=== PATIENT | male | born 1945 | race African-American/Black ===

== ENCOUNTER 2017-08-02 19:15 | Emergency (ER) | payer OTHER ==
[~2017-08-02] VITALS: Ht 175.3 cm; Wt 108.4 kg
[2017-08-02 19:29] VITALS: BP 123/72
[2017-08-02 20:01] LABS: Basophils # (auto) 0 uL; Basophils % (auto) 0.3 % (0.0-2.0); Eosinophils # (auto) 0 uL; Eosinophils % (auto) 0.1 % (0.0-7.0); Hematocrit 45.5 % (41.0-53.0); Hemoglobin 15.5 g/dL (13.5-17.5); Lymphocytes # (auto) 0.9 uL; Lymphocytes % (auto) 13.2 % (10.0-50.0); Mean Corpuscular Hemoglobin 28.3 pg (28.0-32.0); Mean Corpuscular Hgb Conc. 34.1 g/dL (32.0-36.0); Mean Corpuscular Volume 82.9 fL (80.0-100.0); Monocytes # (auto) 0.5 uL; Monocytes % (auto) 7.6 % (0.0-12.0); Neutrophils # (auto) 5.3 uL; Neutrophils % (auto) 78.8 % (37.0-80.0); Nucleated Red Blood Cells % 0.3 %; Platelet Count (auto) 176 10^3/uL (140-450); Red Blood Cells 5.49 10^6/uL (4.5-5.90); Red Cell Distribution Width 13.9 % (11.8-14.3); White Blood Cell 6.7 10^3/uL (4.4-10.8)
[2017-08-02 20:12] LABS: INR 1.06 (0.9-1.15); Partial Thromboplastin Time 35.7 sec (22.64-33.71); Prothrombin Time 11.6 sec (9.37-12.3)
[2017-08-02 20:17] LABS: Alanine Aminotransferase 25 U/L (16-61); Albumin 3.3 g/dL (3.4-5.0); Anion Gap 9 (5-15); Aspartate Aminotransferase 23 U/L (15-37); BUN/Creatinine Ratio 10.5; Blood Urea Nitrogen 13 mg/dL (7-18); Calcium 8.5 mg/dL (8.5-10.1); Carbon Dioxide 24 mmol/L (21-32); Chloride 102 mmol/L (98-107); GFR African American 74 mL/min; GFR Non-African American 61 mL/min; Glucose 111 mg/dL (74-106); Potassium 3.7 mmol/L (3.5-5.1); Sodium 135 mmol/L (136-145)
[2017-08-02 20:24] LABS: Alkaline Phosphatase 74 U/L (45-117); Bilirubin, Total 0.4 mg/dL (0.2-1.0); Total Protein 7.2 g/dL (6.4-8.2)
== END 2017-08-02 20:47 | disposition left against medical advice (07) ==
LOC: ER 19:15
DX: R53.1 Weakness (principal); Z53.21 Procedure and treatment not carried out due to patient leaving prior to being seen by health care provider
CPT/HCPCS: 36415; 71046; 80053; 83880; 84484; 85025; 85610; 85730; 93005

== ENCOUNTER 2024-03-30 13:51 | Inpatient (IN) | payer OTHER ==
[~2024-03-30] VITALS: Ht 167.6 cm; Wt 85.1 kg
--- NOTE | 2024-03-30 14:21 | ED.PDOC ---
History of Present Illness HPI Comments 78 y.o male with PMH of HTN, hyperlipidemia, and thyroid, presents to the ED for a chief complaint of a cough associated with constipation x 2 weeks. Patient is unable to specify further symptoms, states "i have been feeling bad the past 2 weeks with some chest soreness that is no longer there". Patient was at the [facility] today to get his Covid-19 vaccine and staff noticed his blood pressure was low and 911 was activated. Patient does reports not taking his HTN medication for the past 2-3 days due to feeling ill. No SOB, nausea, vomiting, diarrhea, fever, or chills reported. Time Seen by MD: 14:11 Reviewed Notes: Nurses Notes, Medications, Allergies Allergies: Coded Allergies: NO KNOWN ALLERGIES (Unverified , 08/02/17) Information Source: Patient Mode of Arrival: Ambulatory Severity: Moderate Timing: Weeks (2) Duration: Since onset Past Medical History PAST MEDICAL HISTORY: High Lipids, HTN, Thyroid Surgical History (Other): 2 colonoscopies Family History Family History: Reviewed,noncontributory to illness Social History Smoker: Non-Smoker Alcohol: Denies ETOH Use Drugs: Denies Drug Use Lives In: Home Constitutional: reports: malaise; denies: chills, diaphoresis, fatigue, fever, sweats, weakness, others EENTM: denies: blurred vision, double vision, ear bleeding, ear discharge, ear drainage, ear pain, ear ringing, eye pain, eye redness, hearing loss, mouth pain, mouth swelling, nasal discharge, nose bleeding, nose congestion, nose pain, photophobia, tearing, throat pain, throat swelling, voice changes, others Respiratory: reports: cough; denies: hemoptysis, orthopnea, SOB at rest, shortness of breath, SOB with excertion, stridor, wheezing, others Cardiovascular: denies: chest pain, dizzy spells, diaphoresis, Dyspnea on exertion, edema, irregular heart beat, left arm pain, lightheadedness, palpitations, PND, syncope, others Gastrointestinal: reports: constipated; denies: abdomen distended, abdominal pa in, blood streaked bowels, diarrhea, dysphagia, difficulty swallowing, hematemesis, melena, nausea, poor appetite, poor fluid intake, rectal bleeding, rectal pain, vomiting, others Genitourinary: denies: burning, dysuria, flank pain, frequency, hematuria, incontinence, penile discharge, penile sore, pain, testicle pain, testicle swelling, urgency, others Neurological: denies: dizziness, fainting, headache, left sided numbness, left sided weakness, numbness, paresthesia, pre-existing deficit, right sided numbness, right sided weakness, seizure, speech problems, tingling, tremors, weakness, others Musculoskeletal: denies: back pain, gout, joint pain, joint swelling, muscle pain, muscle stiffness, neck pain, others Integumetry: denies: bruises, change in color, change in hair/nails, dryness, laceration, lesions, lumps, rash, wounds, others Allergic/Immunocompromised: denies: Difficulty Healing, Frequent Infections, Hives, Itching, others Hematologic/Lymphatic: denies: anemia, blood clots, easy bleeding, easy bruising, swollen glands, others Endocrine: denies: excessive hunger, excessive sweating, excessive thirst, excessive urination, flushing, intolerance to cold, intolerance to heat, unexplained weight gain, unexplained weight loss, others Psychiatric: denies: anxiety, bipolar disorder, depression, hopeless, panic disorder, schizophrenia, sleepless, suicidal, others All Other Systems: Reviewed and Negative Physical Exam General Appearance: Moderate Distress, Obese HEENT: Normal ENT Inspection, Pharynx Normal, TMs Normal Neck: Full Range of Motion, Non-Tender, Normal, Normal Inspection Respiratory: Chest Non-Tender, Lungs Clear, No Accessory Muscle Use, No Respiratory Distress, Normal Breath Sounds Cardiovascular: No Edema, No JVD, No Murmur, No Gallop, Normal Peripheral Pulses, Regular Rate/Rhythm Breast Exam: Deferred Gastrointestinal: No Organomegaly, Non Tender, No Pulsatile Mass, Normal Bowel Sounds, Soft Genitalia: Deferred Pelvic: Deferred Rectal: Deferred Extremities: No calf tenderness, Normal capillary refill, No pedal edema Musculoskeletal : Apperance: Normal 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 Was a procedure done?: No EKG EKG : Pulse Rate (adult): 115 Cardiac Rhythm: ST Differential Dx Considerations may include: URI, Pneumonia, dehydration, influenza, bronchitis, asthma X-Ray, Labs, Meds, VS Vital Signs Date Time Temp Pulse Resp B/P (MAP) Pulse Ox O2 Delivery O2 Flow Rate FiO2 03/30/24 19:30 98.3 89 19 99/54 (69) 95 98.3 03/30/24 18:02 89 29 90 Nasal Cannula* 3 32 03/30/24 16:47 78 18 96/45 (62) 97 03/30/24 16:22 97.5 83 20 97/39 (58) 97 97.5 03/30/24 15:12 103 18 96 Room Air 03/30/24 15:12 98.9 103 18 86/51 (63) 96 98.9 03/30/24 14:52 115 03/30/24 14:37 97.0 132 17 91/62 (72) 98 03/30/24 14:29 115 Lab Test 03/30/24 18:20 03/30/24 16:43 03/30/24 16:01 03/30/24 14:48 Range/Units Blood Gas Specimen Type Arterial Blood Gas Sample Site Right radial Blood Gas Patient Temperature 37.0 Arterial Blood Date Drawn [id number] Arterial Blood pH 7.479 H 7.350-7.450 Arterial Blood Partial Pressure CO2 25.8 L 35.0-48.0 mmHg Arterial Blood Partial Pressure O2 140.5 H 83.0-108.0 mmHg Arterial Blood HCO3 18.7 L 21.0-28.0 mmol/L Arterial Blood Oxygen Saturation 98.9 H 94.0-98.0 % Arterial Blood Base Excess -3.1 L -2.0-3.0 mmol/L Arterial Blood Oxyhemoglobin 98.0 94.0-98.0 % Arterial Blood Carboxyhemoglobin 0.5 0.5-1.5 % Arterial Blood Methemoglobin 0.4 0.0-1.5 % Tonny Test Yes Blood Gas Total Hemoglobin 14.30 13.5-17.5 g/dL Blood Gas Liter Flow 4.00 Blood Gas Modality Nasal cannula FiO2 % 36.0 Lactic Acid Level 2.0 2.5 *H 0.4-2.0 mmol/L Troponin I High Sensitivity 7 7 </=54 ng/L White Blood Count 9.5 4.4-10.8 10^3/uL Red Blood Count 5.06 4.5-5.90 10^6/uL Hemoglobin 14.6 13.5-17.5 g/dL Hematocrit 43.0 41.0-53.0 % Mean Corpuscular Volume 85.0 80.0-100.0 fL Mean Corpuscular Hemoglobin 28.9 28.0-32.0 pg Mean Corpuscular Hemoglobin Concent 34.0 32.0-36.0 g/dL Red Cell Distribution Width 14.0 11.8-14.3 % Platelet Count 373 140-450 10^3/uL Mean Platelet Volume 7.3 6.9-10.8 fL Neutrophils (%) (Auto) 75.7 37.0-80.0 % Lymphocytes (%) (Auto) 18.7 10.0-50.0 % Monocytes (%) (Auto) 4.5 0.0-12.0 % Eosinophils (%) (Auto) 0.7 0.0-7.0 % Basophils (%) (Auto) 0.4 0.0-2.0 % Neutrophils # (Auto) 7.2 1.6-8.6 10 ^3/uL Lymphocytes # (Auto) 1.8 0.4-5.4 10 ^3/uL Monocytes # (Auto) 0.4 0-1.3 10 ^3/uL Eosinophils # (Auto) 0.1 0-0.8 10 ^3/uL Basophils # (Auto) 0 0-0.2 10 ^3/uL Nucleated Red Blood Cells 0.1 % D-Dimer, Quantitative 1.12 H 0.0-0.49 mg/L FEU Sodium Level 138 136-145 mmol/L Potassium Level 4.4 3.5-5.1 mmol/L Chloride Level 104 98-107 mmol/L Carbon Dioxide Level 22 20-31 mmol/L Anion Gap 12 5-15 Blood Urea Nitrogen 29 H 9-23 mg/dL Creatinine 2.36 H 0.700-1.30 mg/dL Glomerular Filtration Rate Calc 27 >90 mL/min BUN/Creatinine Ratio 12.3 10.0-20.0 Serum Glucose 148 H 74-106 mg/dL Calcium Level 10.0 8.7-10.4 mg/dL Total Bilirubin 0.9 0.2-1.0 mg/dL Aspartate Amino Transferase (AST) 57 H 13-40 U/L Alanine Aminotransferase (ALT) 129 H 7-40 U/L Alkaline Phosphatase 167 H 46-116 U/L B-Type Natriuretic Peptide 22.49 0-100 pg/mL Total Protein 7.0 5.7-8.2 g/dL Albumin 4.2 3.2-4.8 g/dL Current Medications Medications (Trade) Dose Ordered Sig/Niki Route Start Time Stop Time Status Last Admin Sodium Chloride 1,000 ml @ 500 mls/hr Q2H ONCE IVB 03/30/24 14:30 03/30/24 16:29 DC 03/30/24 14:51 Sodium Chloride 500 ml @ 500 mls/hr Q1H ONCE IV 03/30/24 18:15 03/30/24 19:14 DC 03/30/24 18:23 Vancomycin HCl 200 ml @ 200 mls/hr ONCE ONCE IV 03/30/24 18:15 03/30/24 19:14 DC 03/30/24 18:50 Ceftriaxone Sodium 50 ml @ 100 mls/hr ONCE ONCE IV 03/30/24 18:15 03/30/24 18:44 DC 03/30/24 18:26 The chest x-ray is negative. The ultrasound of the lower extremities are negative at this time The patient's ABG is within normal limits The CBC is within normal limits. The chemistry panel shows a BUN of 29 a creatinine of 2.36 The liver enzymes are elevated At this time, the patient was given vancomycin and ceftriaxone for possible sepsis secondary to the lactic acid level being elevated The patient was given fluid normal saline at 500 cc bolus. The D-dimer is elevated at 1.12 At this time, the patient was being admitted at this time. We did speak with [facility] and they did authorize us for admission of this patient. The authorization #[id number] The patient remained somewhat hypotensive so we will continue to monitor the patient's condition Images Reviewed?: Images reviewed and evaluated by me Time of 1ST Reevaluation: 14:16 Reevaluation 1ST: Unchanged Patient Education/Counseling: Diagnosis, Treatment, Prognosis Family Education/Counseling: No Family Present Departure 1 Departure Time of Disposition: 19:36 Impression: Primary Impression: Generalized weakness Additional Impressions: Sepsis Qualified Codes: A41.9 - Sepsis, unspecified organism Elevated lactic acid level Disposition: ADMITTED INPATIENT Admit to: [facility] Condition: Fair Critical Care Note Critical Care Time?: No Stability Stability form required: No I personally scribed for RADHAMES SYLVESTER MD ([email or web address]) on 03/30/24 at 14:21. Electronically submitted by Briana Lira ([facility]). I personally scribed for RADHAMES SYLVESTER MD ([email or web address]) on 03/30/24 at 14:29. Electronically submitted by Briana Lira ([facility]). RADHAMES SYLVESTER MD Mar 30, 2024 14:21
[2024-03-30] MEDS: SODIUM CHLORIDE 0.9% 1,000 ML IVB ONE (14:51)
[2024-03-30 15:01] LABS: Basophils # (auto) 0 10 ^3/uL (0-0.2); Basophils % (auto) 0.4 % (0.0-2.0); Eosinophils # (auto) 0.1 10 ^3/uL (0-0.8); Eosinophils % (auto) 0.7 % (0.0-7.0); Hemoglobin 14.6 g/dL (13.5-17.5); Lymphocytes # (auto) 1.8 10 ^3/uL (0.4-5.4); Lymphocytes % (auto) 18.7 % (10.0-50.0); Mean Corpuscular Hemoglobin 28.9 pg (28.0-32.0); Monocytes # (auto) 0.4 10 ^3/uL (0-1.3); Monocytes % (auto) 4.5 % (0.0-12.0); Neutrophils # (auto) 7.2 10 ^3/uL (1.6-8.6); Neutrophils % (auto) 75.7 % (37.0-80.0); Nucleated Red Blood Cells % 0.1 %; Platelet Count (auto) 373 10^3/uL (140-450); Red Blood Cells 5.06 10^6/uL (4.5-5.90); White Blood Cell 9.5 10^3/uL (4.4-10.8)
[2024-03-30 15:16] LABS: Alanine Aminotransferase 129 U/L (7-40); Albumin 4.2 g/dL (3.2-4.8); Alkaline Phosphatase 167 U/L (46-116); Anion Gap 12 (5-15); Aspartate Aminotransferase 57 U/L (13-40); BUN/Creatinine Ratio 12.3 (10.0-20.0); Blood Urea Nitrogen 29 mg/dL (9-23); Carbon Dioxide 22 mmol/L (20-31); Chloride 104 mmol/L (98-107); Glucose 148 mg/dL (74-106); Potassium 4.4 mmol/L (3.5-5.1); Sodium 138 mmol/L (136-145)
[2024-03-30 15:17] LABS: Bilirubin, Total 0.9 mg/dL (0.2-1.0)
--- NOTE | 2024-03-30 15:21 | DVH ---
Procedure: XY CHEST PORTABLE 03/30/2024 03:00 PM Indication: low bp and cp. Comparison: None TECHNIQUE: XY CHEST PORTABLE FINDINGS: Medical devices: None. Cardiomediastinal: The heart is normal in size. Pulmonary vasculature is within normal limits. Lungs: No focal pulmonary opacity is seen. The costophrenic angles are clear. No pneumothorax. Bones/soft tissues: No acute abnormality is noted. IMPRESSION: 1. No acute cardiopulmonary disease.
[2024-03-30 15:23] LABS: Lactic Acid w/Reflex 2.5 mmol/L (0.4-2.0)
[2024-03-30 18:02] VITALS: PULSE 89; RESP 29; O2SAT 90
[2024-03-30 18:23] LABS: Base Excess -3.1 mmol/L (-2.0-3.0)
[2024-03-30] MEDS: SODIUM CHLORIDE 0.9% 500 ML IV ONE ×2 (18:23→22:13)
[2024-03-30] MEDS: cefTRIAXone 1GM/50ML D5W 50 ML IV ONE (18:26)
--- NOTE | 2024-03-30 18:48 | DVH ---
Procedure: US BiLat Lower DVT Study Date and Requested Time: 03/30/2024 06:23 PM History: sob Comparison: None Technique: Multiple high resolution jameson-scale images with and without compression obtained of the bi lateral lower extremity veins, including the common femoral vein, deep femoral vein, proximal mid and distal superficial femoral vein, and popliteal vein. Additional limited images of the greater saphen ous vein also obtained. Augmentation performed as indicated. Color and spectral doppler flow images o btained as indicated. Findings: No visible intraluminal venous thrombus. No evidence of incompressibility or abnormal color or spectr al Doppler flow visualized in the bilateral lower extremity veins including, the common femoral vein, deep femoral vein, proximal mid and distal superficial femoral vein, and popliteal vein. Greater sap henous vein grossly unremarkable. Impression: No sonographic evidence of bilateral lower extremity deep venous thrombosis.
[2024-03-30] MEDS: VANCOMYCIN 1GM/200ML PREMIX 200 ML IV ONE (18:50)
[2024-03-30 19:30] VITALS: PULSE 89; RESP 19; O2SAT 95
[2024-03-30] MEDS ORDERED: NITROGLYCERIN 0.4 MG SL TAB SL PRN (21:00)
[2024-03-30] MEDS ORDERED: MORPHINE SULFATE INJ 2 MG/ml SYRG IV PRN (21:00)
[2024-03-30] MEDS ORDERED: ONDANSETRON HCL 4 MG/2 ML VIAL IV PRN (21:00)
[2024-03-30] MEDS ORDERED: HYDROcodone-ACET 5/325MG TAB PO PRN (21:00)
[2024-03-30] MEDS ORDERED: ACETAMINOPHEN 325 MG TAB PO PRN (21:00)
[2024-03-30] MEDS ORDERED: DEXTROSE (50%) 50ML SYRG IV PRN (21:15)
[2024-03-30] MEDS ORDERED: IPRATROPIUM BROM 0.5 MG/2.5ML INH SOL NEB PRN (21:15)
[2024-03-30] MEDS ORDERED: ALBUTEROL SULF 2.5 MG/0.5ML(0.5%) NEB SOLN NEB PRN (21:15)
[2024-03-30] MEDS: ALBUTEROL SULF 2.5 MG/0.5ML(0.5%) NEB SOLN NEB ONE (21:38)
[2024-03-30] MEDS: IPRATROPIUM BROM 0.5 MG/2.5ML INH SOL ONE (21:39)
[2024-03-30] MEDS: ALBUTEROL SULF 2.5 MG/0.5ML(0.5%) NEB SOLN ONE (21:39)
[2024-03-30] MEDS: IPRATROPIUM BROM 0.5 MG/2.5ML INH SOL NEB ONE (21:39)
[2024-03-30 21:48] VITALS: BP 96/45; PULSE 76; RESP 20; O2SAT 95
[2024-03-30] MEDS: InsuLIN REG 1unit/0.01ml Soln (100units/ml) SC SCH (22:00)
--- NOTE | 2024-03-30 22:04 | DVHHPRES ---
History of Present Illness Resident Creating Document: NEIDA PINZON RESIDENT History of Present Illness This is a 78 years old male with past medical history of hypertension, hyperlipidemia, hypothyroidism presented to the ED with chief complaint of cold and cough and with constipation for last 2 weeks prior to this admission. The patient states that he has generalized weakness, loss of appetite, intermittent chest pain for the same duration. Today the patient was in [place] [facility] to get the flu and COVID -19 vaccine and there staff noticed that the blood pressure was low 86/51 and then and called the EMS, who brought the patient to the ED of [facility] for further management of hypotension. The patient denies chest pain, shortness of breath, dizziness, diaphoresis, abdominal pain, nausea, vomiting or any change in or any blood in urine or dysuria. PCP: Dr. Luo in [place] Past Medical History Hypertension, hyperlipidemia, hypothyroidism Past Surgical History: None Family History: None Smoke: No ALCOHOL: none Drugs: None Lives: Alone Review of Systems Constitutional: Yes: Chills, Weakness; No: Fever, Sweats, Malaise, Other Eyes: No: Pain, Vision change, Conjunctivae inflammation, Eyelid inflammation, Other, Redness ENT: No: Ear pain, Ear discharge, Nose pain, Nose discharge, Nose congestion, Mouth pain, Mouth swelling, Throat pain, Throat swelling, Other Respiratory: Cough, Shortness of breath; No: Dry, SOB with excertion, Wheezing, Hemoptysis, Pleuritic Pain, Sputum, Wheezing, Other Cardiovascular: Chest Pain; No: Palpitations, Orthopnea, Paroxysmal Noc. Dyspnea, Edema, Lt Headedness, Other Gastrointestinal: Constipation; No: Nausea, Vomiting, Abdominal Pain, Diarrhea, Melena, Hematochezia, Other Genitourinary: No Dysuria, No Frequency, No Incontinence, No Hematuria, No Retention, No Other Musculoskeletal: No: other, neck pain, shoulder pain, arm pain, back pain, hand pain, leg pain, foot pain Skin: No: Rash, Lesions, Jaundice, Bruising, Other Neurological: No: Weakness, Numbness, Incoordination, Change in speech, C onfusion, Seizures, Other Allergies: Coded Allergies: NO KNOWN ALLERGIES (Unverified , 08/02/17) Medications Current Medications Medications Dose Ordered Sig/Niki Route Start Time Stop Time Status Last Admin Dose Admin Sodium Chloride 10 ml Q8HR IV 03/30/24 22:00 Acetaminophen 325 mg Q4HP PRN PO 03/30/24 21:00 Acetaminophen/ Hydrocodone Bitart 1 tab Q4HP PRN PO 03/30/24 21:00 Ondansetron HCl 4 mg Q4HP PRN IV 03/30/24 21:00 Nitroglycerin 0.4 mg Q5MINP PRN SL 03/30/24 21:00 Morphine Sulfate 2 mg Q30M PRN IV 03/30/24 21:00 Albuterol 2.5 mg Q4HPRN PRN NEB 03/30/24 21:15 Ipratropium [place] 0.5 mg Q4HPRN PRN NEB 03/30/24 21:15 Diagnostic Test (Pha) 1 strip ACHS 03/30/24 22:00 Insulin Human Regular ACHS SC 03/30/24 22:00 Dextrose 50 ml UD PRN IV 03/30/24 21:15 Exam Vital Signs Vital Signs Date Time Temp Pulse Resp B/P (MAP) Pulse Ox O2 Delivery O2 Flow Rate FiO2 03/30/24 21:49 98.3 89 19 99/54 (69) 95 98.3 03/30/24 21:48 4.0 36 03/30/24 21:39 Nasal Cannula* Exam Physical examination: General Appearance: Alert, Oriented X3, Cooperative, No acute distress HEENT: Atraumatic, PERRLA, EOMI, Mucous membrane moist/pink Respiratory: Mild wheezing bilaterally. Cardiovascular: Regular rate, Normal S1, Normal S2, No murmurs, no chest wall tenderness Abdominal: Normal bowel sounds, Soft, No tenderness, No hepatospenomegaly, No masses Extremities: No clubbing, No cyanosis, No edema, Normal pulses, No tendernes s/swelling Skin: No rashes, No breakdown, No significant lesion Neuro: Normal gait, Normal speech, Strength at 5/5 X4 ext, Normal tone, Sensation intact. Psych/Mental Status: Mental status NL, Mood NL Labs/Xrays Labs Test 03/30/24 21:30 03/30/24 18:20 03/30/24 16:43 03/30/24 16:01 Range/Units Blood Gas Specimen Type Arterial Blood Gas Sample Site Right radial Blood Gas Patient Temperature 37.0 Arterial Blood Date Drawn [id number] Arterial Blood pH 7.479 H 7.350-7.450 Arterial Blood Partial Pressure CO2 25.8 L 35.0-48.0 mmHg Arterial Blood Partial Pressure O2 140.5 H 83.0-108.0 mmHg Arterial Blood HCO3 18.7 L 21.0-28.0 mmol/L Arterial Blood Oxygen Saturation 98.9 H 94.0-98.0 % Arterial Blood Base Excess -3.1 L -2.0-3.0 mmol/L Arterial Blood Oxyhemoglobin 98.0 94.0-98.0 % Arterial Blood Carboxyhemoglobin 0.5 0.5-1.5 % Arterial Blood Methemoglobin 0.4 0.0-1.5 % Tonny Test Yes Blood Gas Total Hemoglobin 14.30 13.5-17.5 g/dL Blood Gas Liter Flow 4.00 Blood Gas Modality Nasal cannula FiO2 % 36.0 Lactic Acid Level 2.0 0.4-2.0 mmol/L Troponin I High Sensitivity 7 </=54 ng/L Thyroid Stimulating Hormone (TSH) 1.30 0.55-4.78 uIU/mL Test 03/30/24 14:48 Range/Units White Blood Count 9.5 4.4-10.8 10^3/uL Red Blood Count 5.06 4.5-5.90 10^6/uL Hemoglobin 14.6 13.5-17.5 g/dL Hematocrit 43.0 41.0-53.0 % Mean Corpuscular Volume 85.0 80.0-100.0 fL Mean Corpuscular Hemoglobin 28.9 28.0-32.0 pg Mean Corpuscular Hemoglobin Concent 34.0 32.0-36.0 g/dL Red Cell Distribution Width 14.0 11.8-14.3 % Platelet Count 373 140-450 10^3/uL Mean Platelet Volume 7.3 6.9-10.8 fL Neutrophils (%) (Auto) 75.7 37.0-80.0 % Lymphocytes (%) (Auto) 18.7 10.0-50.0 % Monocytes (%) (Auto) 4.5 0.0-12.0 % Eosinophils (%) (Auto) 0.7 0.0-7.0 % Basophils (%) (Auto) 0.4 0.0-2.0 % Neutrophils # (Auto) 7.2 1.6-8.6 10 ^3/uL Lymphocytes # (Auto) 1.8 0.4-5.4 10 ^3/uL Monocytes # (Auto) 0.4 0-1.3 10 ^3/uL Eosinophils # (Auto) 0.1 0-0.8 10 ^3/uL Basophils # (Auto) 0 0-0.2 10 ^3/uL Nucleated Red Blood Cells 0.1 % D-Dimer, Quantitative 1.12 H 0.0-0.49 mg/L FEU Sodium Level 138 136-145 mmol/L Potassium Level 4.4 3.5-5.1 mmol/L Chloride Level 104 98-107 mmol/L Carbon Dioxide Level 22 20-31 mmol/L Anion Gap 12 5-15 Blood Urea Nitrogen 29 H 9-23 mg/dL Creatinine 2.36 H 0.700-1.30 mg/dL Glomerular Filtration Rate Calc 27 >90 mL/min BUN/Creatinine Ratio 12.3 10.0-20.0 Serum Glucose 148 H 74-106 mg/dL Calcium Level 10.0 8.7-10.4 mg/dL Total Bilirubin 0.9 0.2-1.0 mg/dL Aspartate Amino Transferase (AST) 57 H 13-40 U/L Alanine Aminotransferase (ALT) 129 H 7-40 U/L Alkaline Phosphatase 167 H 46-116 U/L B-Type Natriuretic Peptide 22.49 0-100 pg/mL Total Protein 7.0 5.7-8.2 g/dL Albumin 4.2 3.2-4.8 g/dL Assessment/Plan Assessment/Plan Assessment and plan: # Sepsis due to unspecified cause - Lactic acid trends are 2.5>2.0 - Patient was presented with hypotension, tachycardia, elevated creatinine and elevated liver enzyme - Patient was given IV bolus NS at 30 mL/kg for 4 hours - Ordered blood culture - Cefepime 1 g daily and IV doxycycline 100 mg b.i.d. # Acute respiratory failure possibly secondary to acute exacerbation of COPD - In the ER patient was on 4 L oxygen with saturation 94% and now patient is on room air - DuoNeb treatment with albuterol and ipratropium stat given # CKD stage 3 - Renal U/S revealed bilateral thin and echogenic kidney resembles medical renal disease - Strict I&O - Avoid nephrotoxic medication - Consulted nephrology # Type 2 diabetes mellitus ,HbA1c 6.4 - Mild sliding scale of insulin # Transaminitis without hyperbilirubinemia - Monitor BMP # Slow transit constipation - Colace 100 mg p.o. b.i.d. - Lactulose 15 mL p.o. once # DVT prophylaxis - Heparin 5000 units b.i.d. Goal of care discussed with the patient for more than 20 minutes full code Plan of treatment discussed with Dr. Hernandez Plan discussed with: Patient, Other My Orders Orders - NEIDA PINZON RESIDENT Procedure Category Date Status Time Admit ADMIT 03/30/24 Transmitted 20:46 Code Status CODE 03/30/24 Transmitted 20:46 Renal DIET 03/31/24 Transmitted Standard(2gna,3gk,Lopho) Breakfast Sodium Chloride Lock PHA 03/30/24 In Process (Saline Lock Ns) 22:00 Oxygen Per Hour RT 03/30/24 Transmitted 20:46 Acetaminophen Tablet PHA 03/30/24 In Process (Tylenol Tablet) 21:00 Hydrocodone-Acet PHA 03/30/24 In Process 5/325mg Tab ([place] 21:00 Ondansetron Hcl PHA 03/30/24 In Process (Zofran) 21:00 Complete Blood Count LAB 03/31/24 Verified 04:00 Comprehensive LAB 03/31/24 Verified Metabolic Panel 04:00 Echo 2d Mode Cardiac US 03/30/24 Logged DOP 20:46 Nitroglycerin PHA 03/30/24 In Process Sublingual (Ntrostat 21:00 Morphine Sulfate PHA 03/30/24 In Process Injection 21:00 Oxygen By Nasal RT 03/30/24 Transmitted Cannula 20:46 Stat Ekg For Chest RAJENDRA 03/30/24 In Process Pain 20:46 Notify Of Changes RAJENDRA 03/30/24 In Process From Base 20:46 Preparole Counseling Aide For RAJENDRA 03/30/24 In Process 24 Hours 20:46 Emergency Dysrhythmia RAJENDRA 03/30/24 In Process Protocol 20:46 Rhythm Strips Once RAJENDRA 03/30/24 In Process Every Shift 20:46 Covid19 Antigen Vickie LAB 03/30/24 In Process Rapid Influenza A&B LAB 03/30/24 In Process 21:04 Hemoglobin A1c LAB 03/30/24 In Process 21:04 Urinalysis LAB 03/30/24 Uncollected 21:04 Albuterol Medneb PHA 03/30/24 In Process (Ventolin Medneb) 21:15 Ipratropium Medneb PHA 03/30/24 In Process (Atrovent Medneb) 21:15 Vitamin B12 LAB 03/30/24 In Process 21:04 Vitamin D, 25-Hydroxy LAB 03/30/24 In Process 21:04 Comprehensive LAB 03/30/24 In Process Hepatitis Panel 21:07 Glucose Blood PHA 03/30/24 In Process (Accu-Chek Comfort 22:00 Insulin R (Human) PHA 03/30/24 In Process (Insulin R) 22:00 Dextrose 50% Syringe PHA 03/30/24 In Process 21:15 Sodium Chloride 0.9% PHA 03/30/24 In Process 22:00 Kidney US 03/30/24 Logged 21:54 NEIDA PINZON RESIDENT Mar 30, 2024 22:04
[2024-03-30] MEDS: SODIUM CHLOR 0.9% PF (SALINE LOCK) 10ML VIAL/SYR IV SCH (22:07)
[2024-03-30] MEDS: ACCU-CHEK COMFORT CURVE STRIP VI SCH (22:10)
[2024-03-30 22:46] LABS: Rapid Influenza A Negative (Negative); Rapid Influenza B Negative (Negative)
[2024-03-30 22:47] LABS: COVID19 ANTIGEN SOFIA FIA NEGATIVE (NEGATIVE)
--- NOTE | 2024-03-30 23:19 | DVH ---
US KIDNEY HISTORY: Possible CKD COMPARISON: None TECHNIQUE: Transverse and longitudinal grayscale and color Doppler images were obtained of the kidney s and bladder. FINDINGS: Right kidney: Size: 8.5 cm Cortical thickness: Thin Echogenicity: Increased Stones: None Masses: None Hydronephrosis: None Ureters: Not well visualized. Other: None Left kidney: Size: 10.2 cm Cortical thickness: Thin Echogenicity: Increased Stones: None Masses: None Hydronephrosis: None Ureters: Not well visualized. Other: None Bladder: Normal Other: None. IMPRESSION: Thin and echogenic kidneys can be seen with medical renal disease.
[2024-03-31] VITALS (10 sets, daily range): BP systolic 100–137; BP diastolic 52–82; PULSE 61–89; RESP 17–20; TEMP 97.4–97.8; O2SAT 95–97
[2024-03-31] MEDS ORDERED: LISI20TA60 PO (01:23)
[2024-03-31] MEDS ORDERED: SIMV20TA20 PO (01:23)
[2024-03-31] MEDS ORDERED: LEVO75TA6 PO (01:23)
[2024-03-31] MEDS ORDERED: IBUP-1456 PO (01:23)
[2024-03-31] MEDS ORDERED: TAMS0.4C39 PO (01:23)
[2024-03-31] MEDS ORDERED: FINA5TAB4 PO (01:23)
[2024-03-31] MEDS: LACTULOSE 20Gm/30ML SOLN PO ONE (02:40)
[2024-03-31] MEDS: DOXYCYCLINE 100MG/250ML 250 ML IV ONE (02:41)
[2024-03-31 06:52] LABS: Basophils # (auto) 0 10 ^3/uL (0-0.2); Basophils % (auto) 0.6 % (0.0-2.0); Eosinophils # (auto) 0.1 10 ^3/uL (0-0.8); Eosinophils % (auto) 1.3 % (0.0-7.0); Hematocrit 35.7 % (41.0-53.0); Lymphocytes % (auto) 25.1 % (10.0-50.0); Mean Corpuscular Hemoglobin 28.6 pg (28.0-32.0); Mean Corpuscular Hgb Conc. 33.7 g/dL (32.0-36.0); Mean Corpuscular Volume 84.7 fL (80.0-100.0); Monocytes # (auto) 0.6 10 ^3/uL (0-1.3); Monocytes % (auto) 7.7 % (0.0-12.0); Neutrophils # (auto) 5.3 10 ^3/uL (1.6-8.6); Neutrophils % (auto) 65.3 % (37.0-80.0); Platelet Count (auto) 281 10^3/uL (140-450); Red Blood Cells 4.22 10^6/uL (4.5-5.90); Red Cell Distribution Width 14.1 % (11.8-14.3); White Blood Cell 8.1 10^3/uL (4.4-10.8)
[2024-03-31 07:04] LABS: Alanine Aminotransferase 79 U/L (7-40); Alkaline Phosphatase 115 U/L (46-116); Anion Gap 7 (5-15); BUN/Creatinine Ratio 10.4 (10.0-20.0); Blood Urea Nitrogen 21 mg/dL (9-23); Calcium 9.3 mg/dL (8.7-10.4); Carbon Dioxide 25 mmol/L (20-31); Chloride 109 mmol/L (98-107); Glucose 112 mg/dL (74-106); Potassium 4.1 mmol/L (3.5-5.1); Sodium 141 mmol/L (136-145)
[2024-03-31 07:05] LABS: Albumin 3.5 g/dL (3.2-4.8); Aspartate Aminotransferase 31 U/L (13-40); Bilirubin, Total 0.7 mg/dL (0.2-1.0); Total Protein 5.9 g/dL (5.7-8.2)
--- NOTE | 2024-03-31 11:02 | DVHINCON2 ---
Date of service: Mar 31, [address] Leyva Reason for Consultation Acute kidney injury History of Present Illness Patient is a 78-year-old male with past medical history significant for diabetes mellitus type 2, High Lipids, HTN, and hypothyroidism is admitted for cough and constipation. On admission patient found to have elevated creatinine nephrology is consulted for acute kidney injury Past Medical History PAST MEDICAL HISTORY: Diabetes mellitus type 2, High Lipids, HTN, Thyroid Past Surgical History Surgical History (Other): 2 colonoscopies Allergies: Coded Allergies: NO KNOWN ALLERGIES (Unverified , 08/02/17) Home Meds Reported Medications Ibuprofen (Ibuprofen) 800 Mg Tab, 1 TAB PO TID, #90 TAB 1 Refill 03/31/24 Tamsulosin Hcl (Tamsulosin Hcl) 0.4 Mg Cap, 1 CAP PO DAILY, #30 CAP 5 Refills 03/31/24 Lisinopril & Hydrochlorothiazi (Zestoretic) 1 Tab Tab, 1 TAB PO DAILY, #30 TAB 5 Refills 03/31/24 Levothyroxine Sodium (Levothyroxine Sodium) 75 Mcg Tab, 1 TAB PO DAILY, #30 TAB 5 Refills 03/31/24 Finasteride (Finasteride) 5 Mg Tab, 1 TAB PO DAILY, #30 TAB 11 Refills 03/31/24 Simvastatin (Simvastatin) 20 Mg Tab, 1 TAB PO QPM, #30 TAB 5 Refills 03/31/24 Current Medications Current Medications Medications (Trade) Dose Ordered Sig/Niki Route PRN Reason Start Time Stop Time Status Last Admin Sodium Chloride (Saline Lock Ns) 10 ml Q8HR IV 03/30/24 22:00 03/31/24 05:34 Acetaminophen (Tylenol Tablet) 325 mg Q4HP PRN PO MILD PAIN (1-3 PAIN SCALE) 03/30/24 21:00 Acetaminophen/ Hydrocodone Bitart ([place] 5/325MG Tab) 1 tab Q4HP PRN PO MODERATE PAIN (4-6 PAIN SCALE) 03/30/24 21:00 Ondansetron HCl (Zofran) 4 mg Q4HP PRN IV NAUSEA / VOMITING 03/30/24 21:00 Nitroglycerin (Ntrostat Sublingual) 0.4 mg Q5MINP PRN SL FOR CHEST PAIN 03/30/24 21:00 Morphine Sulfate 2 mg Q30M PRN IV FOR CHEST PAIN 03/30/24 21:00 Albuterol (Ventolin Medneb) 2.5 mg Q4HPRN PRN NEB SHORTNESS OF BREATH 03/30/24 21:15 Ipratropium [place] (Atrovent Medneb) 0.5 mg Q4HPRN PRN NEB SHORTNESS OF BREATH 03/30/24 21:15 Diagnostic Test (Pha) (Accu-Chek Comfort Curve T) 1 strip ACHS 03/30/24 22:00 03/31/24 05:34 Insulin Human Regular (InsuLIN R) ACHS SC 03/30/24 22:00 Dextrose 50 ml UD PRN IV Blood Sugar LESS THAN 60 03/30/24 21:15 Cefepime HCl 50 ml @ 12.5 mls/hr DAILY IV 03/31/24 10:00 03/31/24 11:06 Doxycycline Hyclate 250 ml @ 125 mls/hr Q12H IV 03/31/24 10:00 Docusate Sodium (Colace Capsule) 100 mg BID PO 03/31/24 10:00 03/31/24 11:07 Heparin Sodium (Porcine) 5,000 units Q12HR SC 03/31/24 10:00 03/31/24 11:20 Sodium Chloride 1,000 ml @ 75 mls/hr [id number] IV 03/31/24 08:15 03/31/24 11:22 Review of Systems All 12 item review of systems reviewed with the patient nonsignificant except what is mentioned in the history of present illness H&P Exam Vital Signs/I&O Vital Sign Date Time Temp Pulse Resp B/P (MAP) Pulse Ox O2 Delivery O2 Flow Rate FiO2 03/31/24 08:20 97.4 80 18 111/52 (71) 97 97.4 03/31/24 07:28 Room Air 0.0 03/31/24 07:28 21 Intake and Output 03/30/24 03/31/24 19:00 07:00 Intake Total 1100 ml 1200 ml Balance 1100 ml 1200 ml Intake Oral 0 ml IV Total 1100 ml 1200 ml # Voids 2 Labs/Diagnostic Data Labs/Diagnostic Data Laboratory Tests Test 03/31/24 06:23 03/31/24 05:33 03/30/24 22:08 03/30/24 21:30 Range/Units White Blood Count 8.1 4.4-10.8 10^3/uL Red Blood Count 4.22 L 4.5-5.90 10^6/uL Hemoglobin 12.0 #L 13.5-17.5 g/dL Hematocrit 35.7 #L 41.0-53.0 % Mean Corpuscular Volume 84.7 80.0-100.0 fL Mean Corpuscular Hemoglobin 28.6 28.0-32.0 pg Mean Corpuscular Hemoglobin Concent 33.7 32.0-36.0 g/dL Red Cell Distribution Width 14.1 11.8-14.3 % Platelet Count 281 140-450 10^3/uL Mean Platelet Volume 7.3 6.9-10.8 fL Neutrophils (%) (Auto) 65.3 37.0-80.0 % Lymphocytes (%) (Auto) 25.1 10.0-50.0 % Monocytes (%) (Auto) 7.7 0.0-12.0 % Eosinophils (%) (Auto) 1.3 0.0-7.0 % Basophils (%) (Auto) 0.6 0.0-2.0 % Neutrophils # (Auto) 5.3 1.6-8.6 10 ^3/uL Lymphocytes # (Auto) 2.0 0.4-5.4 10 ^3/uL Monocytes # (Auto) 0.6 0-1.3 10 ^3/uL Eosinophils # (Auto) 0.1 0-0.8 10 ^3/uL Basophils # (Auto) 0 0-0.2 10 ^3/uL Nucleated Red Blood Cells 0.0 % Sodium Level 141 136-145 mmol/L Potassium Level 4.1 3.5-5.1 mmol/L Chloride Level 109 H 98-107 mmol/L Carbon Dioxide Level 25 20-31 mmol/L Anion Gap 7 5-15 Blood Urea Nitrogen 21 9-23 mg/dL Creatinine 2.01 H 0.700-1.30 mg/dL Glomerular Filtration Rate Calc 33 >90 mL/min BUN/Creatinine Ratio 10.4 10.0-20.0 Serum Glucose 112 H 74-106 mg/dL Calcium Level 9.3 8.7-10.4 mg/dL Phosphorus Level 3.0 2.4-5.1 mg/dL Magnesium Level 1.9 1.6-2.6 mg/dL Total Bilirubin 0.7 0.2-1.0 mg/dL Aspartate Amino Transferase (AST) 31 13-40 U/L Alanine Aminotransferase (ALT) 79 H 7-40 U/L Alkaline Phosphatase 115 46-116 U/L Total Protein 5.9 5.7-8.2 g/dL Albumin 3.5 3.2-4.8 g/dL POC Glucose 119 H 97 70-106 mg/dl Influenza Type A Antigen Negative Negative Influenza Type B Antigen Negative Negative SARS-CoV-2 Antigen (Rapid) Negative NEGATIVE Test 03/30/24 18:20 03/30/24 16:43 03/30/24 16:01 03/30/24 14:48 Range/Units Blood Gas Specimen Type Arterial Blood Gas Sample Site Right radial Blood Gas Patient Temperature 37.0 Arterial Blood Date Drawn [id number] Arterial Blood pH 7.479 H 7.350-7.450 Arterial Blood Partial Pressure CO2 25.8 L 35.0-48.0 mmHg Arterial Blood Partial Pressure O2 140.5 H 83.0-108.0 mmHg Arterial Blood HCO3 18.7 L 21.0-28.0 mmol/L Arterial Blood Oxygen Saturation 98.9 H 94.0-98.0 % Arterial Blood Base Excess -3.1 L -2.0-3.0 mmol/L Arterial Blood Oxyhemoglobin 98.0 94.0-98.0 % Arterial Blood Carboxyhemoglobin 0.5 0.5-1.5 % Arterial Blood Methemoglobin 0.4 0.0-1.5 % Tonny Test Yes Blood Gas Total Hemoglobin 14.30 13.5-17.5 g/dL Blood Gas Liter Flow 4.00 Blood Gas Modality Nasal cannula FiO2 % 36.0 Lactic Acid Level 2.0 2.5 *H 0.4-2.0 mmol/L Troponin I High Sensitivity 7 7 </=54 ng/L Thyroid Stimulating Hormone (TSH) 1.30 0.55-4.78 uIU/mL White Blood Count 9.5 4.4-10.8 10^3/uL Red Blood Count 5.06 4.5-5.90 10^6/uL Hemoglobin 14.6 13.5-17.5 g/dL Hematocrit 43.0 41.0-53.0 % Mean Corpuscular Volume 85.0 80.0-100.0 fL Mean Corpuscular Hemoglobin 28.9 28.0-32.0 pg Mean Corpuscular Hemoglobin Concent 34.0 32.0-36.0 g/dL Red Cell Distribution Width 14.0 11.8-14.3 % Platelet Count 373 140-450 10^3/uL Mean Platelet Volume 7.3 6.9-10.8 fL Neutrophils (%) (Auto) 75.7 37.0-80.0 % Lymphocytes (%) (Auto) 18.7 10.0-50.0 % Monocytes (%) (Auto) 4.5 0.0-12.0 % Eosinophils (%) (Auto) 0.7 0.0-7.0 % Basophils (%) (Auto) 0.4 0.0-2.0 % Neutrophils # (Auto) 7.2 1.6-8.6 10 ^3/uL Lymphocytes # (Auto) 1.8 0.4-5.4 10 ^3/uL Monocytes # (Auto) 0.4 0-1.3 10 ^3/uL Eosinophils # (Auto) 0.1 0-0.8 10 ^3/uL Basophils # (Auto) 0 0-0.2 10 ^3/uL Nucleated Red Blood Cells 0.1 % D-Dimer, Quantitative 1.12 H 0.0-0.49 mg/L FEU Sodium Level 138 136-145 mmol/L Potassium Level 4.4 3.5-5.1 mmol/L Chloride Level 104 98-107 mmol/L Carbon Dioxide Level 22 20-31 mmol/L Anion Gap 12 5-15 Blood Urea Nitrogen 29 H 9-23 mg/dL Creatinine 2.36 H 0.700-1.30 mg/dL Glomerular Filtration Rate Calc 27 >90 mL/min BUN/Creatinine Ratio 12.3 10.0-20.0 Serum Glucose 148 H 74-106 mg/dL Hemoglobin A1c 6.4 H <5.7 % A1C Calcium Level 10.0 8.7-10.4 mg/dL Total Bilirubin 0.9 0.2-1.0 mg/dL Aspartate Amino Transferase (AST) 57 H 13-40 U/L Alanine Aminotransferase (ALT) 129 H 7-40 U/L Alkaline Phosphatase 167 H 46-116 U/L B-Type Natriuretic Peptide 22.49 0-100 pg/mL Total Protein 7.0 5.7-8.2 g/dL Albumin 4.2 3.2-4.8 g/dL Vitamin B12 Level 604 211-911 pg/mL Vitamin D 25-Hydroxy 60.4 30.0-100 ng/mL Assessment Acute kidney injury superimposed Chronic Kidney Disease secondary hemodynamic mediated Diabetes mellitus type 2 Hyperlipidemia Hypothyroidism Constipation Sepsis Recommendations Closely monitor fluid and electrolytes Avoid nephrotoxic medications Strict I&Os Check urinalysis urine electrolytes and urine protein excretion Kidney ultrasound reported bilateral echogenic kidney Insulin sliding scale GI consult We will continue to follow up Patient seen and examined by myself. I discussed my plan of care with the patient and the primary nurse at the bedside I would like to thank Dr. Leyva for the consult, will follow up Plan discussed with: Patient GILA MEJIA MD Mar 31, 2024 11:02
[2024-03-31] MEDS: CEFEPIME 1GM/ 50ML 50 ML IV SCH (11:06)
[2024-03-31] MEDS: DOCUSATE SOD 100 MG CAP PO SCH (11:07)
[2024-03-31] MEDS: HEPARIN SODIUM (PORCINE) 5000 UNITS/ML 1ML VIAL SC SCH (11:20)
[2024-03-31] MEDS: SODIUM CHLORIDE 0.9% 1,000 ML IV SCH (11:22)
[2024-03-31 11:30] LABS: Magnesium 1.9 mg/dL (1.6-2.6)
[2024-03-31] MEDS: DOXYCYCLINE 100MG/250ML 250 ML IV SCH (15:58)
--- NOTE | 2024-03-31 16:50 | DVHPNRES ---
Progress Note Date Seen: Mar 31, 2024 Resident Creating Document: JASMYN LONGO RESIDENT Has the PT tested + for MRSA If YES, has PT been informed?: No Medical Necessity Reason Pt with a Central, PICC or Fol: No Subjective Review of Systems This is an 78 years old male with past medical history of hypertension, hyperlipidemia, hypothyroidism presented to the ED with chief complaint of cold and cough and with constipation for last 2 weeks prior to this admission. The patient states that he has generalized weakness, loss of appetite, intermittent chest pain for the same duration. The patient was in [facility] to get the flu and COVID -19 vaccine and there staff noticed that the blood pressure was low 86/51 and then and called the EMS, who brought the patient to the ED of [facility] for further management of hypotension. The patient denies chest pain, shortness of breath, dizziness, diaphoresis, abdominal pain, nausea, vomiting or any change in or any blood in urine or dysuria. Patient seen and examined at bedside. The patient is currently denying chest pain, shortness of breath, fever has no additional complaints at this time. Blood pressure has been in the lower side, and creatinine was 2.01 and BUN 21 for which we started IV fluids at 75 cc/hour. Initial chest x-ray was grossly unremarkable and bilateral lower venous Doppler was showing no evidence of DVTs. Renal ultrasound was also performed showing thin and echogenic kidneys seen in medical renal disease. We will continue IV cefepime and doxycycline until urinalysis is back we can rule out completely sepsis. Patient is otherwise hemodynamically stable without further complaints. ROS Constitutional: Denies weight loss, fever and chills. HEENT: Denies changes in vision and hearing. Respiratory: Denies shortness of breath and cough Cardiovascular: Denies chest discomfort or palpitations GI: Denies abdominal pain, nausea, vomiting and diarrhea. : Denies dysuria and urinary frequency. Musculoskeletal: Denies myalgias and joint pain Skin: Denies rash and pruritus. Neurological: Denies dizziness, headache, vision or hearing problems Objective vital signs Vital Sign Date Time Temp Pulse Resp B/P (MAP) Pulse Ox O2 Delivery O2 Flow Rate FiO2 03/31/24 12:42 97.4 61 17 100/56 (71) 97 97.4 03/31/24 07:28 Room Air 0.0 03/31/24 07:28 21 Total Intake and Output 11/8/24 11/8/24 11/9/24 15:00 23:00 07:00 Intake Total 1800 ml 500 ml Balance 1800 ml 500 ml medications Current Medications Medications Dose Ordered Sig/Niki Route Start Time Stop Time Status Last Admin Dose Admin Sodium Chloride 10 ml Q8HR IV 03/30/24 22:00 03/31/24 14:09 10 ML Acetaminophen 325 mg Q4HP PRN PO 03/30/24 21:00 Acetaminophen/ Hydrocodone Bitart 1 tab Q4HP PRN PO 03/30/24 21:00 Ondansetron HCl 4 mg Q4HP PRN IV 03/30/24 21:00 Nitroglycerin 0.4 mg Q5MINP PRN SL 03/30/24 21:00 Morphine Sulfate 2 mg Q30M PRN IV 03/30/24 21:00 Albuterol 2.5 mg Q4HPRN PRN NEB 03/30/24 21:15 Ipratropium [place] 0.5 mg Q4HPRN PRN NEB 03/30/24 21:15 Diagnostic Test (Pha) 1 strip ACHS 03/30/24 22:00 03/31/24 11:30 1 STRIP Insulin Human Regular ACHS SC 03/30/24 22:00 03/31/24 11:30 2 UNITS Dextrose 50 ml UD PRN IV 03/30/24 21:15 Cefepime HCl 50 ml @ 12.5 mls/hr DAILY IV 03/31/24 10:00 03/31/24 11:06 12.5 MLS/HR Doxycycline Hyclate 250 ml @ 125 mls/hr Q12H IV 03/31/24 10:00 03/31/24 15:58 125 MLS/HR Docusate Sodium 100 mg BID PO 03/31/24 10:00 03/31/24 11:07 100 MG Heparin Sodium (Porcine) 5,000 units Q12HR SC 03/31/24 10:00 03/31/24 11:20 5,000 UNITS Sodium Chloride 1,000 ml @ 75 mls/hr [id number] IV 03/31/24 08:15 03/31/24 11:22 75 MLS/HR Examination Physical Examination General: Patient alert and oriented in person, place and time. Patient following commands. HEENT: Normocephalic, atraumatic, moist mucous membranes Respiratory/pulmonary: Clear lungs bilaterally, no associated crackles or wheezes. Cardiovascular: Normal heart sounds S1 and S2 with no associated murmurs Abdomen: Abdomen nondistended, there is no pain to palpation in any of the abdominal quadrants, no palpable masses. Extremities: There is no peripheral edema present at the lower extremities. Peripheral Pulses: 3+ Radial (R). 3+ Radial (L). 3+ Dorsalis pedis (R). 3+ Dorsalis pedis(L) Skin: No rashes or pruritus, there is no sacral edema present at this time. Neurological: Intact cranial nerves with no focal neurologic deficits laboratory and microbiology Laboratory Tests 03/31/24 06:23 Test 03/31/24 06:23 Range/Units Serum Glucose 112 H 74-106 mg/dL Problem List/Assessment/Plan Problem List/Assessment/Plan Assessment/Plan Severe hypotension likely due to dehydration, R/O UTI Possible SIRS, Ruled out sepsis -initial WBC on normal range, patient was hypotensive, tachycardic, lactic acid was elevated -no known source of infection at this point -patient was started empirically on IV cefepime and doxycycline, we will continue antibiotics until blood urine cultures are back -patient was started on IV fluids at 75 cc/hour -Monitor BP closely Acute respiratory failure possibly secondary to acute exacerbation of COPD - In the ER patient was on 4 L oxygen with saturation 94% and now patient is on room air - respiratory therapy with albuterol and ipratropium was given -patient is currently saturating 97% on room air -COVID and flu came back both negative ROBBI on 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 b.i.d. -Lactulose 15 mL p.o. once DVT prophylaxis - Heparin 5000 units b.i.d. due to ROBBI/CKD Goals of care discussed with the patient at bedside for >23min, FULL CODE Plan discussed with Dr. Grajeda Plan discussed with: Patient My Orders My Orders Orders - JASMYN LONGO Procedure Category Date Status Time Sodium Chloride 0.9% PHA 03/31/24 In Process 08:15 JASMYN LONGO RESIDENT Mar 31, 2024 16:50
[2024-04-01] VITALS (8 sets, daily range): BP systolic 95–130; BP diastolic 0–72; PULSE 69–86; RESP 16–18; TEMP 97.3–97.8; O2SAT 95–98
[2024-04-01 06:22] LABS: Chloride 111 mmol/L (98-107); Sodium 141 mmol/L (136-145)
[2024-04-01 06:23] LABS: Calcium 9.2 mg/dL (8.7-10.4)
[2024-04-01 06:28] LABS: BUN/Creatinine Ratio 9.2 (10.0-20.0); Blood Urea Nitrogen 15 mg/dL (9-23); Glucose 93 mg/dL (74-106); Magnesium 1.6 mg/dL (1.6-2.6)
[2024-04-01 06:30] LABS: Basophils # (auto) 0 10 ^3/uL (0-0.2); Basophils % (auto) 0.7 % (0.0-2.0); Eosinophils # (auto) 0.2 10 ^3/uL (0-0.8); Eosinophils % (auto) 2.6 % (0.0-7.0); Hematocrit 32.2 % (41.0-53.0); Hemoglobin 11.2 g/dL (13.5-17.5); Lymphocytes # (auto) 2.1 10 ^3/uL (0.4-5.4); Lymphocytes % (auto) 35.1 % (10.0-50.0); Mean Corpuscular Hemoglobin 29.2 pg (28.0-32.0); Mean Corpuscular Hgb Conc. 34.7 g/dL (32.0-36.0); Mean Corpuscular Volume 84.3 fL (80.0-100.0); Monocytes # (auto) 0.5 10 ^3/uL (0-1.3); Neutrophils # (auto) 3.2 10 ^3/uL (1.6-8.6); Neutrophils % (auto) 53.6 % (37.0-80.0); Nucleated Red Blood Cells % 0.3 %; Platelet Count (auto) 247 10^3/uL (140-450); Red Blood Cells 3.82 10^6/uL (4.5-5.90)
[2024-04-01 06:38] LABS: Urine Bacteria None Seen /hpf (None Seen)
[2024-04-01 06:59] LABS: Urine Blood Negative /uL (Negative); Urine Clarity Turbid (Clear); Urine Color Light-Yellow (Yellow); Urine Protein, UAD Negative (Negative); Urine Specific Gravity 1.014 (1.001-1.035); Urine Urobilinogen Normal (Negative); Urine WBC 24 /hpf (0 - 3)
[2024-04-01 07:05] LABS: Protein, Urine 11.4 mg/dL (1-14)
[2024-04-01 07:07] LABS: Creatinine, Urine 106.41 mg/dL (30.0-125.0); Urine Protein/Creatinine Ratio 0.11
[2024-04-01 08:48] LABS: Anion Gap 5 (5-15); Carbon Dioxide 25 mmol/L (20-31)
--- NOTE | 2024-04-01 11:14 | DVHPN2 ---
Progress Note Date Seen: Apr 01, 2024 Has the PT tested + for MRSA If YES, has PT been informed?: No Medical Necessity Reason Pt with a Central, PICC or Fol: No Subjective Other Systems: Patient seen and examined by myself today in follow-up Objective vital signs Vital Sign Date Time Temp Pulse Resp B/P (MAP) Pulse Ox O2 Delivery O2 Flow Rate FiO2 04/01/24 08:58 97.8 81 16 112/72 (85) 98 97.8 04/01/24 08:00 Room Air* 0 95 21 Total Intake and Output 03/31/24 03/31/24 04/01/24 14:59 22:59 06:59 Intake Total 240 ml 1280 ml 1050 ml Balance 240 ml 1280 ml 1050 ml medications Current Medications Medications Dose Ordered Sig/Niki Route Start Time Stop Time Status Last Admin Dose Admin Sodium Chloride 10 ml Q8HR IV 03/30/24 22:00 04/01/24 06:05 10 ML Acetaminophen 325 mg Q4HP PRN PO 03/30/24 21:00 Acetaminophen/ Hydrocodone Bitart 1 tab Q4HP PRN PO 03/30/24 21:00 Ondansetron HCl 4 mg Q4HP PRN IV 03/30/24 21:00 Nitroglycerin 0.4 mg Q5MINP PRN SL 03/30/24 21:00 Morphine Sulfate 2 mg Q30M PRN IV 03/30/24 21:00 Albuterol 2.5 mg Q4HPRN PRN NEB 03/30/24 21:15 Cancel Ipratropium [place] 0.5 mg Q4HPRN PRN NEB 03/30/24 21:15 Cancel Diagnostic Test (Pha) 1 strip ACHS 03/30/24 22:00 04/01/24 06:06 1 STRIP Insulin Human Regular ACHS SC 03/30/24 22:00 03/31/24 11:30 2 UNITS Dextrose 50 ml UD PRN IV 03/30/24 21:15 Docusate Sodium 100 mg BID PO 03/31/24 10:00 04/01/24 08:02 100 MG Heparin Sodium (Porcine) 5,000 units Q12HR SC 03/31/24 10:00 04/01/24 08:11 5,000 UNITS Sodium Chloride 1,000 ml @ 125 mls/hr Q8H IV 04/01/24 09:00 Ceftriaxone Sodium 50 ml @ 100 mls/hr DAILY@09 IV 04/01/24 09:00 Examination: LUNGS:Normal, CVS:Normal, MSK:Normal laboratory and microbiology Laboratory Tests 04/01/24 05:32 Test 04/01/24 05:32 Range/Units Serum Glucose 93 74-106 mg/dL Microbiology Date/Time Source Procedure Growth Status 03/30/24 19:12 Blood Blood Culture - Preliminary NO GROWTH AFTER 24 HOURS OF INCUBATION. 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
--- NOTE | 2024-04-01 11:38 | DVHSR ---
APPROVED REPORT EXAM: LIMITED Two-dimensional and M-mode echocardiogram with Doppler and color Doppler. Blood Pressure: 109/62 mmHg INDICATION Shortness of Breath RISK FACTORS Height: 5' 6", Weight: 186 DIMENSIONS LVDd4.6 (3.8-5.7cm)LA (2D)3.9 (1.9-4.0cm)Aortic Root (2.0-3.7cm) LVDs3.4 (2.5-4.0cm)LA (MM) (1.9-4.0cm)Aortic Cusp Exc (1.5-2.0cm) EF (%) 50.0 (55-70%)Rt. Atrium (1.9-4.0cm)Asc. Aorta cm IVSd1.1 (0.7-1.1cm)RV (D) (1.8-2.4cm) PWd1.1 (0.7-1.1cm) Mitral Valve MitralMitral Stenosis E wave0.70m/sMV Mean GR.mmHg A wave1.00m/sMV Peak GR.mmHg E/A ratio0.72D MVAcm2 Aortic Valve Aortic ValveAortic Stenosis V11.00m/Willis Mean GR.7mmHg V21.80m/Willis Peak GR.14mmHg LVOT Diameter2.1 (1.8-2.4cm)Doppler AVA1.92cm2 Other Information Quality : Technically LimitedRhythm : Technically limited study due to body habitus. Conclusion Normal left ventricular size and dimension. Normal left ventricular systolic function estimated ejec tion fraction 55%. There is a grade 1 diastolic dysfunction. Normal right ventricular size and dimension. Normal right ventricular systolic function. Normal biatrial size and dimension. Normal aortic valve structure and function. Normal mitral valve structure and function. Normal tricuspid valve structure and function. The pulmonary valve grossly normal. No pericardial effusion.
[2024-04-01] MEDS: SODIUM CHLORIDE 0.9% 500 ML IV ONE (12:16)
[2024-04-01] MEDS ORDERED: CEPH250C PO (13:00)
[2024-04-01] MEDS: cefTRIAXone 1GM/50ML D5W 50 ML IV SCH (13:41)
[2024-04-01] MEDS: SODIUM CHLORIDE 0.9% 1,000 ML IV SCH (13:44)
--- NOTE | 2024-04-01 15:29 | DVHDSRES ---
Discharge Summary Date of Admission Resident Creating Document: JASMYN LONGO RESIDENT Mar 30, 2024 at 20:46 Date of Discharge: Apr 01, 2024 Admitting Diagnosis Cough and cold, generalized weakness Labs/Diagnostic Data: Laboratory Results Test 04/01/24 12:13 04/01/24 06:30 04/01/24 05:32 03/31/24 06:23 POC Glucose 121 mg/dl (70-106) Urine Color Light-yellow (Yellow) Urine Clarity Turbid (Clear) Urine pH 5.0 (5.0-9.0) Urine Specific [place] 1.014 (1.001-1.035) Urine Protein Negative (Negative) Urine Ketones Negative (Negative) Urine Blood Negative /uL (Negative) Urine Nitrite Negative (Negative) Urine Bilirubin Negative (Negative) Urine Urobilinogen Normal mg/dL (Negative) Urine Leukocyte Esterase 2+ /uL (Negative) Urine RBC 4 /hpf (0 - 3) Urine WBC 24 /hpf (0 - 3) Urine Squamous Epithelial Cells Few /hpf (<5) Urine Bacteria None seen /hpf (None Seen) Urine Creatinine 106.41 mg/dL (30.0-125.0) Urine Protein/Creatinine Ratio 0.11 Urine Sodium 102 mmol/L (40-220) Urine Glucose Normal mg/dL (Normal) Urine Total Protein 11.4 mg/dL (1-14) White Blood Count 6.0 10^3/uL (4.4-10.8) Red Blood Count 3.82 10^6/uL (4.5-5.90) Hemoglobin 11.2 g/dL (13.5-17.5) Hematocrit 32.2 % (41.0-53.0) Mean Corpuscular Volume 84.3 fL (80.0-100.0) Mean Corpuscular Hemoglobin 29.2 pg (28.0-32.0) Mean Corpuscular Hemoglobin Concent 34.7 g/dL (32.0-36.0) Red Cell Distribution Width 14.0 % (11.8-14.3) Platelet Count 247 10^3/uL (140-450) Mean Platelet Volume 7.2 fL (6.9-10.8) Neutrophils (%) (Auto) 53.6 % (37.0-80.0) Lymphocytes (%) (Auto) 35.1 % (10.0-50.0) Monocytes (%) (Auto) 8.0 % (0.0-12.0) Eosinophils (%) (Auto) 2.6 % (0.0-7.0) Basophils (%) (Auto) 0.7 % (0.0-2.0) Neutrophils # (Auto) 3.2 10 ^3/uL (1.6-8.6) Lymphocytes # (Auto) 2.1 10 ^3/uL (0.4-5.4) Monocytes # (Auto) 0.5 10 ^3/uL (0-1.3) Eosinophils # (Auto) 0.2 10 ^3/uL (0-0.8) Basophils # (Auto) 0 10 ^3/uL (0-0.2) Nucleated Red Blood Cells 0.3 % Sodium Level 141 mmol/L (136-145) Potassium Level 4.0 mmol/L (3.5-5.1) Chloride Level 111 mmol/L (98-107) Carbon Dioxide Level 25 mmol/L (20-31) Anion Gap 5 (5-15) Blood Urea Nitrogen 15 mg/dL (9-23) Creatinine 1.63 mg/dL (0.700-1.30) Glomerular Filtration Rate Calc 43 mL/min (>90) BUN/Creatinine Ratio 9.2 (10.0-20.0) Serum Glucose 93 mg/dL (74-106) Calcium Level 9.2 mg/dL (8.7-10.4) Magnesium Level 1.6 mg/dL (1.6-2.6) Phosphorus Level 3.0 mg/dL (2.4-5.1) Total Bilirubin 0.7 mg/dL (0.2-1.0) Aspartate Amino Transferase (AST) 31 U/L (13-40) Alanine Aminotransferase (ALT) 79 U/L (7-40) Alkaline Phosphatase 115 U/L (46-116) Total Protein 5.9 g/dL (5.7-8.2) Albumin 3.5 g/dL (3.2-4.8) Test 03/30/24 21:30 03/30/24 18:20 03/30/24 16:43 03/30/24 16:01 Influenza Type A Antigen Negative (Negative) Influenza Type B Antigen Negative (Negative) SARS-CoV-2 Antigen (Rapid) Negative (NEGATIVE) Blood Gas Specimen Type Arterial Blood Gas Sample Site Right radial Blood Gas Patient Temperature 37.0 Arterial Blood Date Drawn Arterial Blood pH 7.479 (7.350-7.450) Arterial Blood Partial Pressure CO2 25.8 mmHg (35.0-48.0) Arterial Blood Partial Pressure O2 140.5 mmHg (83.0-108.0) Arterial Blood HCO3 18.7 mmol/L (21.0-28.0) Arterial Blood Oxygen Saturation 98.9 % (94.0-98.0) Arterial Blood Base Excess -3.1 mmol/L (-2.0-3.0) Arterial Blood Oxyhemoglobin 98.0 % (94.0-98.0) Arterial Blood Carboxyhemoglobin 0.5 % (0.5-1.5) Arterial Blood Methemoglobin 0.4 % (0.0-1.5) Tonny Test Yes Blood Gas Total Hemoglobin 14.30 g/dL (13.5-17.5) Blood Gas Liter Flow 4.00 Blood Gas Modality Nasal cannula FiO2 % 36.0 Lactic Acid Level 2.0 mmol/L (0.4-2.0) Troponin I High Sensitivity 7 ng/L (</=54) Thyroid Stimulating Hormone (TSH) 1.30 uIU/mL (0.55-4.78) Test 03/30/24 14:48 D-Dimer, Quantitative 1.12 mg/L FEU (0.0-0.49) Hemoglobin A1c 6.4 % A1C (<5.7) B-Type Natriuretic Peptide 22.49 pg/mL (0-100) Vitamin B12 Level 604 pg/mL (211-911) Other Laboratory Tests 04/01/24 05:32 Brief Hx & Hospital Course: This is an 78 years old male with past medical history of hypertension, hyperlipidemia, hypothyroidism presented to the ED with chief complaint of cold and cough and with constipation for last 2 weeks prior to this admission. The patient states that he has generalized weakness, loss of appetite, intermittent chest pain for the same duration. The patient was in [facility] to get the flu and COVID -19 vaccine and there staff noticed that the blood pressure was low 86/51 and then and called the EMS, who brought the patient to the ED of [facility] for further management of hypotension. The patient denies chest pain, shortness of breath, dizziness, diaphoresis, abdominal pain, nausea, vomiting or any change in or any blood in urine or dysuria. Urinalysis revealed UTI. Echo 2D revealed LVEF 55%. chest x-ray was grossly unremarkable and bilateral lower venous Doppler was showing no evidence of DVTs. Renal ultrasound was also performed showing thin and echogenic kidneys seen in medical renal disease. Sepsis ruled out, pneumonia ruled out. Patient hypotension likely due to dehydration associated with UTI. Patient was treated with IV fluid and antibiotic. Patient was found to have UTI on further workup. Patient was also found to have ROBBI on CKD stage 3b. Patient was seen by financial counselor. Patient developed clinically with conservative management. Patient was discharged home with Keflex 500 mg b.i.d. for 5 days. Patient was advised to follow up with the primary care physician in 1 week and also to follow up with the financial counselor for further evaluation of care of chronic kidney disease stage 3b. Patient's meds were sent to the pharmacy electronically. Patient was hemodynamically stable on discharge. ROS Constitutional: Denies weight loss, fever and chills. HEENT: Denies changes in vision and hearing. Respiratory: Denies shortness of breath and cough Cardiovascular: Denies chest discomfort or palpitations GI: Denies abdominal pain, nausea, vomiting and diarrhea. : Denies dysuria and urinary frequency. Musculoskeletal: Denies myalgias and joint pain Skin: Denies rash and pruritus. Neurological: Denies dizziness, headache, vision or hearing problems Physical Examination General: Patient alert and oriented in person, place and time. Patient following commands. HEENT: Normocephalic, atraumatic, moist mucous membranes Respiratory/pulmonary: Clear lungs bilaterally, no associated crackles or wheezes. Cardiovascular: Normal heart sounds S1 and S2 with no associated murmurs Abdomen: Abdomen nondistended, there is no pain to palpation in any of the abdominal quadrants, no palpable masses. Extremities: There is no peripheral edema present at the lower extremities. Peripheral Pulses: 3+ Radial (R). 3+ Radial (L). 3+ Dorsalis pedis (R). 3+ Dorsalis pedis(L) Skin: No rashes or pruritus, there is no sacral edema present at this time. Neurological: Intact cranial nerves with no focal neurologic deficits Operations or Procedures Signed PATIENT: CEM AKBAR ACCT: [id number] UNIT: [id number] : 1945 LOC: OVERFLOW ROOM / BED: 1011-ER / A AGE / SEX: 78 / M ADM STATUS: ADM IN SERVICE 53 ORDERING PHYSICIAN: NEIDA PINZON PROCEDURE(s): KIDUS - KIDNEY REASON: Possible CKD ORDER NUMBER(s): [id number], ACCESSION NUMBER(s): [id number] US KIDNEY HISTORY: Possible CKD COMPARISON: None TECHNIQUE: Transverse and longitudinal grayscale and color Doppler images were obtained of the kidneys and bladder. FINDINGS: Right kidney: Size: 8.5 cm Cortical thickness: Thin Echogenicity: Increased Stones: None Masses: None Hydronephrosis: None Ureters: Not well visualized. Other: None Left kidney: Size: 10.2 cm Cortical thickness: Thin Echogenicity: Increased Stones: None Masses: None Hydronephrosis: None Ureters: Not well visualized. Other: None Bladder: Normal Other: None. IMPRESSION: Thin and echogenic kidneys can be seen with medical renal disease. ATED BY: OSKAR COLMENARES MD DICTATED DATE/TIME: 03/30/242315 SIGNED BY: OSKAR COLMENARES MD SIGNED DATE/TIME: 03/30/242315 PATIENT: CEM AKBAR ACCT: [id number] UNIT: [id number] : 1945 LOC: ER ROOM / BED: / AGE / SEX: 78 / M ADM STATUS: REG ER SERVICE 11 ORDERING PHYSICIAN: RADHAMES SYLVESTER MD PROCEDURE(s): BLDVT - BiLat Lower DVT REASON: sob ORDER NUMBER(s): [id number], ACCESSION NUMBER(s): [id number] Procedure: US BiLat Lower DVT Study Date and Requested Time: 03/30/2024 06:23 PM History: sob Comparison: None Technique: Multiple high resolution jameson-scale images with and without compression obtained of the bilateral lower extremity veins, including the common femoral vein, deep femoral vein, proximal mid and distal superficial femoral vein, and popliteal vein. Additional limited images of the greater saphenous vein also obtained. Augmentation performed as indicated. Color and spectral doppler flow images obtained as indicated. Findings: No visible intraluminal venous thrombus. No evidence of incompressibility or abnormal color or spectral Doppler flow visualized in the bilateral lower extremity veins including, the common femoral vein, deep femoral vein, proximal mid and distal superficial femoral vein, and popliteal vein. Greater saphenous vein grossly unremarkable. Impression: No sonographic evidence of bilateral lower extremity deep venous thrombosis. ATED BY: MARIBELL PARKER DO DICTATED DATE/TIME: 03/30/241845 SIGNED BY: MARIBELL PARKER DO SIGNED DATE/TIME: 03/30/241845 CC: Signed PATIENT: CEM AKBAR ACCT: [id number] UNIT: [id number] : 1945 LOC: ER ROOM / BED: / AGE / SEX: 78 / M ADM STATUS: REG ER SERVICE 20 ORDERING PHYSICIAN: RADHAMES SYLVESTER MD PROCEDURE(s): CXRP - CHEST PORTABLE REASON: low bp and cp ORDER NUMBER(s): [id number], ACCESSION NUMBER(s): [id number] Procedure: XY CHEST PORTABLE 03/30/2024 03:00 PM Indication: low bp and cp. Comparison: None TECHNIQUE: XY CHEST PORTABLE FINDINGS: Medical devices: None. Cardiomediastinal: The heart is normal in size. Pulmonary vasculature is within normal limits. Lungs: No focal pulmonary opacity is seen. The costophrenic angles are clear. No pneumothorax. Bones/soft tissues: No acute abnormality is noted. IMPRESSION: 1. No acute cardiopulmonary disease. ATED BY: SONALI COOK MD DICTATED DATE/TIME: 03/30/241517 SIGNED BY: SONALI COOK MD SIGNED DATE/TIME: 03/30/241517 CC: CC: Condition at Discharge: Stable Final Diagnosis/Problems List Hypotension likely due to UTI anterior dehydration UTI Dehydration Sepsis ruled out Pneumonia ruled out ROBBI on CKD likely due to VM[facility] History of hypertension Hyperlipidemia BPH Hypothyroidism Discharge Disposition: Home Discharge Instruct/Medications Diet: Consistent carbohydrate, Cardiac 2g Na,low cholest (2 gm sodium, low cholesterol) Activity: No Restrictions, As Tolerated Follow Up/Referral: Please follow up with your primary care physician in 1 week Also follow up with the financial counselor for ROBBI on CKD Please monitor blood pressure before you take blood pressure medication Consult with your primary care physician before restarting lisinopril- hydrochlorothiazide medication PLEASE AVOID NEPHROTOXIC MEDICATIONS LIKE NSAIDS Medications: Keflex 250 mg p.o. b.i.d. for 5 days Resume home medications Consult with your primary care physician before restarting lisinopril- hydrochlorothiazide Discharge Statement: "Patient was advised to return to the ER or call 911 if any headaches, dizziness, shortness of breath, chest pain, abdominal pain, bleeding, fevers, or worsening of medical condition. Patient was counseled about treatment plan, medications, possible side effects, patientverbalized understanding. All questions were answered to the best of my ability. This discharge took greater then 30 minutes in planning, reviewing documentation, counseling the patient, and discussing with other team members." ASSESSMENT ASSESSMENT Assessment Hypotension likely due to UTI Sepsis ruled out ROBBI on CKD likely due to VMM JOSE R ACEVEDO RESIDENT Apr 01, 2024 15:29
[2024-04-02 09:15] LABS: Hepatitis B Core Total AB Negative (Negative)
[2024-04-02 09:40] LABS: Hepatitis A Total Antibody Negative (Negative); Hepatitis B Surface Antibody Negative (Negative); Hepatitis B Surface Antigen Negative (Negative); Hepatitis C Antibody Negative (Negative)
--- NOTE | 2024-04-02 13:14 | ECG ---
[facility] Test Date: 2024-03-30 Test Time: 14:27:53 Pat Name: CEM AKBAR Department: ED Room: 0279 Gender: M Lift Truck Operator: NIKITA : 1945 Requested By: RADHAMES SYLVESTER Order Number: [id number] Reading MD: Measurements Intervals [place] Rate: 115 P: 27 MO: 143 QRS: -6 QRSD: 93 T: 58 QT: 330 QTc: 457 Interpretive Statements Sinus tachycardia Abnormal R-wave progression, early transition Please click the below link to view image of tracing.
== END 2024-04-01 19:30 | disposition home or self-care (01) | DRG 640 ==
LOC: ER 13:51 → OVERFLOW 20:46 → WEST WING 23:52
PROVIDERS: ATTEND Emergency Medicine
DX: E86.0 Dehydration (principal); N17.0 Acute kidney failure with tubular necrosis; N39.0 Urinary tract infection, site not specified; I95.9 Hypotension, unspecified; E87.20 Acidosis, unspecified; E03.9 Hypothyroidism, unspecified; E78.5 Hyperlipidemia, unspecified; K59.00 Constipation, unspecified; R74.01 Elevation of levels of liver transaminase levels; N40.0 Benign prostatic hyperplasia without lower urinary tract symptoms; I12.9 Hypertensive chronic kidney disease with stage 1 through stage 4 chronic kidney disease, or unspecified chronic kidney disease; E11.22 Type 2 diabetes mellitus with diabetic chronic kidney disease; N18.32 Chronic kidney disease, stage 3b; Z20.822 Contact with and (suspected) exposure to COVID-19
CPT/HCPCS: 36415; 36600; 71045; 76775; 80048; 80053; 81001; 82306; 82570; 82607; 82805; 82962; 83036; 83605; 83735; 83880; 83970; 84100; 84156; 84300; 84443; 84484; 85025; 85379; 86704; 86706; 86708; 86803; 87040; 87086; 87340; 87426; 87804; 93005; 93306; 93970; 94640; G0378; J1815; J3490

== ENCOUNTER 2024-06-11 14:03 | Emergency (ER) | payer OTHER ==
[~2024-06-11] VITALS: Ht 167.6 cm; Wt 94.6 kg
[~2024-06-11 14:03] MED LIST: CEPH250C PO; FINA5TAB4 PO; LEVO75TA6 PO; LISI20TA60 PO; SIMV20TA20 PO; TAMS0.4C39 PO
--- NOTE | 2024-06-11 14:51 | ECG ---
[facility] Test Date: 2024-06-11 Test Time: 14:47:36 Pat Name: CEM AKBAR Department: ER Room: Gender: Occupational Therapist'S Assistant: : 1945 Requested By: RADHAMES SYLVESTER Order Number: [id number] Reading MD: Naif Barbre Measurements Intervals [place] Rate: 82 P: 29 AR: 163 QRS: -31 QRSD: 92 T: 40 QT: 397 QTc: 464 Interpretive Statements Sinus rhythm Probable left atrial enlargement Left axis deviation Electronically Signed On 06-14-2024 16:32:08 PST by Naif Barber Please click the below link to view image of tracing.
--- NOTE | 2024-06-11 14:53 | ED.PDOC ---
Back pain HPI HPI Comments 78 y.o male with PMHx of DM, HTN, hyperlipidemia, thyroid disease and BPH, presents to the ED for a chief complaint of left sided neck pain radiating to his left upper back that started 1-2 months ago. Patient describes pain as sharp, constant, states now is worse than before and has no modifying factors. Patient denies any recent falls, injuries, strains or previous surgeries to pain region. Upon ED arrival, patient's blood pressure read 193/82. Patient has been compliant with medications and states his blood pressure has not been elevated at home recently. Chief Complaint: Upper Extremity Time Seen by MD: 14:45 Primary Care Provider: KALANI Rizo Notes: Nurses Notes, Medications, Allergies Allergies: Coded Allergies: NO KNOWN ALLERGIES (Unverified , 08/02/17) Home Meds Active Scripts Cephalexin (KEFLEX CAPSULE) 250 Mg Cp, 1 CAP PO QID, #28 CAP Prov:JULIO CHAUDHRY MD 04/01/24 Reported Medications Tamsulosin Hcl (Tamsulosin Hcl) 0.4 Mg Cap, 1 CAP PO DAILY, #30 CAP 5 Refills 03/31/24 Lisinopril & Hydrochlorothiazi (Zestoretic) 1 Tab Tab, 1 TAB PO DAILY, #30 TAB 5 Refills 03/31/24 Levothyroxine Sodium (Levothyroxine Sodium) 75 Mcg Tab, 1 TAB PO DAILY, #30 TAB 5 Refills 03/31/24 Finasteride (Finasteride) 5 Mg Tab, 1 TAB PO DAILY, #30 TAB 11 Refills 03/31/24 Simvastatin (Simvastatin) 20 Mg Tab, 1 TAB PO QPM, #30 TAB 5 Refills 03/31/24 Information Source: Patient Mode of Arrival: Ambulatory Timing: Months (1-2) Duration: Since onset Location of Back pain: (L) Upper back Severity: Moderate Quality: Sharp Onset: Spontaneous History of: None Modifying Factors: Nothing Associated signs and symptoms: Other Past Medical History PAST MEDICAL HISTORY: High Lipids, HTN, Thyroid Past Medical History (Other): BPH Surgical History (Other): colonoscopy Family History Family History: Reviewed,noncontributory to illness Social History Smoker: Non-Smoker Alcohol: Denies ETOH Use Drugs: Denies Drug Use Lives In: Home Constitutional: denies: chills, diaphoresis, fatigue, fever, malaise, sweats, weakness, others EENTM: denies: blurred vision, double vision, ear bleeding, ear discharge, ear drainage, ear pain, ear ringing, eye pain, eye redness, hearing loss, mouth pain, mouth swelling, nasal discharge, nose bleeding, nose congestion, nose pain, photophobia, tearing, throat pain, throat swelling, voice changes, others Respiratory: denies: cough, hemoptysis, orthopnea, SOB at rest, shortness of breath, SOB with excertion, stridor, wheezing, others Cardiovascular: denies: chest pain, dizzy spells, diaphoresis, Dyspnea on exertion, edema, irregular heart beat, left arm pain, lightheadedness, palpitations, PND, syncope, others Gastrointestinal: denies: abdomen distended, abdominal pain, blood streaked bowels, constipated, diarrhea, dysphagia, difficulty swallowing, hematemesis, melena, nausea, poor appetite, poor fluid intake, rectal bleeding, rectal pain, vomiting, others Genitourinary: denies: burning, dysuria, flank pain, frequency, hematuria, incontinence, penile discharge, penile sore, pain, testicle pain, testicle swelling, urgency, others Neurological: denies: dizziness, fainting, headache, left sided numbness, left sided weakness, numbness, paresthesia, pre-existing deficit, right sided numbness, right sided weakness, seizure, speech problems, tingling, tremors, weakness, others Musculoskeletal: reports: back pain, neck pain; denies: gout, joint pain, joint swelling, muscle pain, muscle stiffness, others Integumetry: denies: bruises, change in color, change in hair/nails, dryness, laceration, lesions, lumps, rash, wounds, others Allergic/Immunocompromised: denies: Difficulty Healing, Frequent Infections, Hives, Itching, others Hematologic/Lymphatic: denies: anemia, blood clots, easy bleeding, easy bruising, swollen glands, others Endocrine: denies: excessive hunger, excessive sweating, excessive thirst, excessive urination, flushing, intolerance to cold, intolerance to heat, unexplained weight gain, unexplained weight loss, others Psychiatric: denies: anxiety, bipolar disorder, depression, hopeless, panic disorder, schizophrenia, sleepless, suicidal, others All Other Systems: Reviewed and Negative Physical Exam General Appearance: No Apparent Distress HEENT: Normal ENT Inspection, Pharynx Normal, TMs Normal Neck: Full Range of Motion, Non-Tender, Normal, Normal Inspection Respiratory: Chest Non-Tender, Lungs Clear, No Accessory Muscle Use, No Respiratory Distress, Normal Breath Sounds Cardiovascular: No Edema, No JVD, No Murmur, No Gallop, Normal Peripheral Pulses, Regular Rate/Rhythm Breast Exam: Deferred Gastrointestinal: No Organomegaly, Non Tender, No Pulsatile Mass, Normal Bowel Sounds, Soft Genitalia: Deferred Pelvic: Deferred Rectal: Deferred Extremities: No calf tenderness, Normal capillary refill, Normal inspection, No rmal range of motion, Non-tender, No pedal edema Musculoskeletal : Apperance: Normal Neurologic: Alert, creche attendant II-XII nml as Tested, No Motor Deficits, Normal Affect, Normal Mood, No Sensory Deficits Cerebellar Function: Normal Reflexes: Normal Skin: Dry, Normal Color, Warm Lymphatic: No Adenopathy Was a procedure done? Was a procedure done?: No EKG EKG : Pulse Rate (adult): 90 [place]: Normal Cardiac Rhythm: NSR ST: Nonsp Back Pain Differential Dx Differential Diagnosis: Fracture, Musculoskeletal Pain X-Ray, Labs, Meds, VS Vital Signs Date Time Temp Pulse Resp B/P (MAP) Pulse Ox O2 Delivery O2 Flow Rate FiO2 06/11/24 16:00 98 18 182/87 (118) 95 06/11/24 14:47 82 06/11/24 14:46 98.8 110 20 193/82 (119) 92 Lab Test 06/11/24 16:29 06/11/24 15:24 Range/Units Troponin I High Sensitivity Pending 15 </=54 ng/L White Blood Count 6.6 4.4-10.8 10^3/uL Red Blood Count 4.30 L 4.5-5.90 10^6/uL Hemoglobin 12.4 L 13.5-17.5 g/dL Hematocrit 37.0 L 41.0-53.0 % Mean Corpuscular Volume 86.0 80.0-100.0 fL Mean Corpuscular Hemoglobin 28.8 28.0-32.0 pg Mean Corpuscular Hemoglobin Concent 33.5 32.0-36.0 g/dL Red Cell Distribution Width 14.6 H 11.8-14.3 % Platelet Count 177 140-450 10^3/uL Mean Platelet Volume 7.2 6.9-10.8 fL Neutrophils (%) (Auto) 70.9 37.0-80.0 % Lymphocytes (%) (Auto) 20.8 10.0-50.0 % Monocytes (%) (Auto) 6.4 0.0-12.0 % Eosinophils (%) (Auto) 1.7 0.0-7.0 % Basophils (%) (Auto) 0.2 0.0-2.0 % Neutrophils # (Auto) 4.7 1.6-8.6 10 ^3/uL Lymphocytes # (Auto) 1.4 0.4-5.4 10 ^3/uL Monocytes # (Auto) 0.4 0-1.3 10 ^3/uL Eosinophils # (Auto) 0.1 0-0.8 10 ^3/uL Basophils # (Auto) 0 0-0.2 10 ^3/uL Nucleated Red Blood Cells 0.0 % Sodium Level 144 136-145 mmol/L Potassium Level 3.8 3.5-5.1 mmol/L Chloride Level 110 H 98-107 mmol/L Carbon Dioxide Level 26 20-31 mmol/L Anion Gap 8 5-15 Blood Urea Nitrogen 15 9-23 mg/dL Creatinine 1.47 H 0.700-1.30 mg/dL Glomerular Filtration Rate Calc 48 >90 mL/min BUN/Creatinine Ratio 10.2 10.0-20.0 Serum Glucose 104 74-106 mg/dL Calcium Level 9.6 8.7-10.4 mg/dL Chest x-ray IMPRESSION: 1. No acute cardiopulmonary pathology The patient's CBC and chemistry panel are within normal limits The creatinine is 1.47 The troponin levels within normal limits At this time, we did contact [place] and they will be seeing the patient up for an outpatient follow up The authorization #[id number] The patient will be discharged at this time Images Reviewed?: Images reviewed and evaluated by me Time of 1ST Reevaluation: 14:49 Reevaluation 1ST: Unchanged Patient Education/Counseling: Diagnosis, Treatment, Prognosis, Need For Follow Up Family Education/Counseling: No Family Present Departure 1 Departure Time of Disposition: 16:44 Impression: Primary Impression: Musculoskeletal pain Disposition: 01 HOME / SELF CARE / HOMELESS Condition: Fair Discharged With: Self Critical Care Note Critical Care Time?: No Stability Stability form required: No I personally scribed for RADHAMES SYLVESTER MD ([email or web address]) on 06/11/24 at 14:53. Electronically submitted by Briana Lira ([facility]). I personally scribed for RADHAMES SYLVESTER MD ([email or web address]) on 06/11/24 at 15:55. Electronically submitted by Briana Lira ([facility]). RADHAMES SYLVESTER MD Jun 11, 2024 14:53
--- NOTE | 2024-06-11 15:11 | DVH ---
Chest x-ray Technique: PA and lateral views Comparison: 03/30/2024 CLINICAL INDICATION: Chest pain FINDINGS: Poor inspiratory effort. The heart size is borderline. Aorta is tortuous. No infiltrates o r effusion IMPRESSION: 1. No acute cardiopulmonary pathology
[2024-06-11 15:42] LABS: Basophils # (auto) 0 10 ^3/uL (0-0.2); Basophils % (auto) 0.2 % (0.0-2.0); Eosinophils # (auto) 0.1 10 ^3/uL (0-0.8); Eosinophils % (auto) 1.7 % (0.0-7.0); Hemoglobin 12.4 g/dL (13.5-17.5); Lymphocytes # (auto) 1.4 10 ^3/uL (0.4-5.4); Lymphocytes % (auto) 20.8 % (10.0-50.0); Mean Corpuscular Hemoglobin 28.8 pg (28.0-32.0); Mean Corpuscular Hgb Conc. 33.5 g/dL (32.0-36.0); Monocytes # (auto) 0.4 10 ^3/uL (0-1.3); Monocytes % (auto) 6.4 % (0.0-12.0); Neutrophils # (auto) 4.7 10 ^3/uL (1.6-8.6); Neutrophils % (auto) 70.9 % (37.0-80.0); Platelet Count (auto) 177 10^3/uL (140-450); Red Cell Distribution Width 14.6 % (11.8-14.3); White Blood Cell 6.6 10^3/uL (4.4-10.8)
[2024-06-11 15:56] LABS: Potassium 3.8 mmol/L (3.5-5.1); Sodium 144 mmol/L (136-145)
[2024-06-11 15:57] LABS: Anion Gap 8 (5-15); Calcium 9.6 mg/dL (8.7-10.4); Carbon Dioxide 26 mmol/L (20-31)
[2024-06-11 15:58] LABS: Chloride 110 mmol/L (98-107)
[2024-06-11 16:02] LABS: BUN/Creatinine Ratio 10.2 (10.0-20.0); Blood Urea Nitrogen 15 mg/dL (9-23); Glucose 104 mg/dL (74-106)
[2024-06-11] MEDS: cloNIDine HCL 0.1 MG TAB PO ONE (17:05)
[2024-06-11 17:31] VITALS: PULSE 87; RESP 24; O2SAT 97
[2024-06-11 17:32] VITALS: BP 163/79
== END 2024-06-11 17:34 | disposition home or self-care (01) ==
LOC: ER 14:03
DX: M54.2 Cervicalgia (principal); M54.89 Other dorsalgia; E78.5 Hyperlipidemia, unspecified; I10 Essential (primary) hypertension; E03.9 Hypothyroidism, unspecified; Z79.899 Other long term (current) drug therapy; Z98.890 Other specified postprocedural states
CPT/HCPCS: 36415; 71046; 80048; 84484; 85025; 93005